=== PATIENT | female | born 1980 | race Two or more races ===

== ENCOUNTER 2021-04-12 11:50 | Observation (INO) | payer MEDICAID ==
[2021-04-12] MEDS ORDERED: PREN-96 PO (14:08)
== END 2021-04-12 14:27 | disposition home or self-care (01) ==
LOC: LDRP 11:50
PROVIDERS: ADMIT Obstetrics & Gynecology; ATTEND Obstetrics & Gynecology
DX: O24.419 Gestational diabetes mellitus in pregnancy, unspecified control (principal); Z3A.32 32 weeks gestation of pregnancy
CPT/HCPCS: 59025; 76818; 81002; G0378

== ENCOUNTER 2021-04-18 08:05 | Observation (INO) | payer MEDICAID ==
[~2021-04-18] VITALS: Ht 154.9 cm; Wt 68.0 kg
[~2021-04-18 08:05] MED LIST: PREN-96 PO
== END 2021-05-08 17:00 | disposition home or self-care (01) ==
LOC: LDRP 05-08 14:42
PROVIDERS: ADMIT Obstetrics & Gynecology; ATTEND Obstetrics & Gynecology
DX: O24.419 Gestational diabetes mellitus in pregnancy, unspecified control (principal); Z3A.36 36 weeks gestation of pregnancy
CPT/HCPCS: 59025; 76818; 81002; 82948; 82962; 94760; G0378

== ENCOUNTER 2021-05-19 19:15 | Observation (INO) | payer MEDICAID | END 2021-05-19 23:32 | disposition home or self-care (01) | LOC: LDRP 19:15 | PROVIDERS: ADMIT Obstetrics & Gynecology; ATTEND Obstetrics & Gynecology | DX: O99.891 Other specified diseases and conditions complicating pregnancy (principal); M79.89 Other specified soft tissue disorders; M79.605 Pain in left leg; O26.893 Other specified pregnancy related conditions, third trimester; R51.9 Headache, unspecified; R60.0 Localized edema; Z3A.37 37 weeks gestation of pregnancy | CPT/HCPCS: 59025; 81002; 82948; 82962; 93971; 94760; G0378 ==

== ENCOUNTER 2021-05-30 01:20 | Inpatient (IN) | payer MEDICAID ==
[~2021-05-30] VITALS: Ht 154.9 cm; Wt 77.6 kg
[2021-05-30] MEDS ORDERED: PROMETHAZINE HCL 25 MG/ML 1ML IV PRN (01:30)
[2021-05-30] MEDS ORDERED: WITCH HAZEL-GLYCERIN PAD TOP PRN (01:30)
[2021-05-30] MEDS ORDERED: LACT. RINGERS/OXYTOCIN 20UNITS 500 ML IV ONE ×2 (01:30→02:00)
[2021-05-30] MEDS ORDERED: TERBUTALINE SULFATE 1 MG/ML 1ML VIAL SC PRN (01:30)
[2021-05-30] MEDS ORDERED: DERMOPLAST 60ML BOTTLE TOP PRN (01:30)
[2021-05-30] MEDS ORDERED: PHISODERM TOP SOLN 240ML BTL TOP PRN (01:30)
[2021-05-30] MEDS ORDERED: LACTATED RINGER'S 1,000 ML IV SCH (01:30)
[2021-05-30] MEDS ORDERED: BUTORPHANOL TARTRATE 2 MG/1 ML VIAL IV PRN ×2 (01:30)
[2021-05-30] MEDS ORDERED: LIDOCAINE 2%HCL (LOCAL ANESTH.) INJ 10ml MDV IJ PRN (01:30)
[2021-05-30 01:52] LABS: Basophils # (auto) 0 10 ^3/uL (0-0.2); Basophils % (auto) 0.5 % (0.0-2.0); Eosinophils # (auto) 0 10 ^3/uL (0-0.8); Eosinophils % (auto) 0.3 % (0.0-7.0); Hemoglobin 13.3 g/dL (12.2-16.2); Lymphocytes # (auto) 1.9 10 ^3/uL (0.4-5.4); Lymphocytes % (auto) 28.1 % (10.0-50.0); Mean Corpuscular Hemoglobin 30.9 pg (28.0-32.0); Mean Corpuscular Hgb Conc. 34.2 g/dL (32.0-36.0); Mean Corpuscular Volume 90.4 fL (80.0-100.0); Monocytes # (auto) 0.5 10 ^3/uL (0-1.3); Monocytes % (auto) 7.6 % (0.0-12.0); Neutrophils # (auto) 4.3 10 ^3/uL (1.6-8.6); Neutrophils % (auto) 63.5 % (37.0-80.0); Nucleated Red Blood Cells % 0.1 %; Red Blood Cells 4.32 10^6/uL (4.0-5.20); Red Cell Distribution Width 15.2 % (11.8-14.3); White Blood Cell 6.7 10^3/uL (4.4-10.8)
[2021-05-30 02:07] LABS: INR 0.94 (0.9-1.15)
[2021-05-30 02:10] LABS: Albumin 2.7 g/dL (3.4-5.0); BUN/Creatinine Ratio 16.9; Calcium 8.9 mg/dL (8.5-10.1)
[2021-05-30 02:13] LABS: Bilirubin, Total 0.3 mg/dL (0.2-1.0); Total Protein 6.8 g/dL (6.4-8.2)
[2021-05-30 02:16] LABS: Urine Bacteria NONE SEEN /hpf (None Seen); Urine Blood 3+ /uL (Negative); Urine Mucus FEW (None Seen); Urine Specific Gravity 1.012 (1.001-1.035); Urine WBC 13 /hpf (0 - 5)
[2021-05-30 02:19] LABS: Alcohol, Urine < 3.0 mg/dL (0-10); Amphetamine Screen, Urine NEGATIVE (NEGATIVE); Barbiturate Scree,Urine NEGATIVE (NEGATIVE); Benzodiazephine Screen, Urine NEGATIVE (NEGATIVE); Cannabinoid Screen, Urine NEGATIVE (NEGATIVE); Cocaine Screen, Urine NEGATIVE (NEGATIVE); Phencyclidine Screen, Urine NEGATIVE (NEGATIVE)
[2021-05-30 02:24] LABS: Opiate Scree,Urine NEGATIVE (NEGATIVE)
[2021-05-30] MEDS ORDERED: ONDANSETRON ODT 4 MG TAB PO PRN (05:15)
[2021-05-30] MEDS ORDERED: ACETAMINOPHEN 325 MG TAB PO PRN (05:15)
[2021-05-30 06:34] VITALS: BP 106/56
[2021-05-30 11:30] VITALS: BP 110/66
[2021-05-30 15:30] VITALS: BP 105/68
[2021-05-30 19:20] VITALS: BP 114/59
[2021-05-30] MEDS: IBUPROFEN 600 MG TAB PO PRN (19:40)
[2021-05-30] MEDS: DOCUSATE SOD 100 MG CAP PO SCH (22:23)
[2021-05-30 23:00] VITALS: BP 115/65
[2021-05-31 03:00] VITALS: BP 123/66
[2021-05-31 07:30] VITALS: BP 114/73
[2021-05-31 08:07] LABS: RPR Non Reactive (Non Reactive)
[2021-05-31 11:30] VITALS: BP 116/78
[2021-05-31] MEDS: IBUPROFEN 600 MG TAB PO PRN (13:09)
[2021-05-31 14:36] VITALS: BP 100/61
[2021-05-31 19:15] VITALS: BP 108/67
[2021-05-31] MEDS: DOCUSATE SOD 100 MG CAP PO SCH (22:00)
[2021-05-31 23:10] VITALS: BP 95/66
[2021-06-01 03:00] VITALS: BP 101/63
[2021-06-01 07:00] VITALS: BP 106/65
[2021-06-01] MEDS ORDERED: TETANUS-DIPTH-ACEL PERTUSSIS 0.5ML SYR Tdap IM ONE (10:30)
== END 2021-06-01 11:10 | disposition home or self-care (01) | DRG 560 ==
LOC: LDRP 01:20 → OBSVTOIN 01:28 → LDRP 01:29
PROVIDERS: ADMIT Obstetrics & Gynecology; ATTEND Obstetrics & Gynecology
PROC: 10E0XZZ Delivery of Products of Conception, External Approach (ICD-10-PCS; principal; 2021-05-30)
DX: O24.420 Gestational diabetes mellitus in childbirth, diet controlled (principal); Z37.0 Single live birth; O69.81X0 Labor and delivery complicated by cord around neck, without compression, not applicable or unspecified; Z20.822 Contact with and (suspected) exposure to COVID-19; Z3A.39 39 weeks gestation of pregnancy
CPT/HCPCS: 36415; 59025; 59409; 80053; 80307; 81001; 81002; 82948; 82962; 85025; 85610; 85730; 86592; 86850; 86900; 86901; 90715; 94760; 94762; 96360; 96361; 96365; 96366; 96372; G0378; J2001; J2590